=== PATIENT | male | born 1975 | race Caucasian/White ===

== ENCOUNTER 2021-11-09 09:41 | Outpatient (CLI) | payer SELFPAY ==
[2021-11-09 10:14] VITALS: BP 141/115; PULSE 70; RESP 16; TEMP 36.6; O2SAT 99; BMI 47.5
--- NOTE | 2021-11-09 10:20 | NURSING ---
Pt informed he would be receiving Bamlanivimab/Estivimab infusion today and after speaking with insisted that he receive Regen-Cov. Pharmacy contacted and informed of pt's request.
[2021-11-09] MEDS: 0.9% Saline Lock 10 ML Syringe IV (10:25)
[2021-11-09 12:48] VITALS: BP 151/106; PULSE 68; RESP 16; TEMP 36.4; O2SAT 99
[2021-11-09 13:49] VITALS: BP 146/115; PULSE 69; RESP 16; TEMP 36.3; O2SAT 97
== END 2021-11-09 13:49 | disposition home or self-care (01) ==
LOC: MS3OUT 09:43 → MS3 09:43
PROVIDERS: Referring Provider Nurse Practitioner Adult Health; Visit Provider Nurse Practitioner Adult Health
DX: Z23 Encounter for immunization (principal); U07.1 COVID-19
CPT/HCPCS: J7050; M0243; Q0245; A4216; Q0240